=== PATIENT | female | born 1945 | race Caucasian/White ===

== ENCOUNTER 2017-01-02 11:18 | Outpatient (CLI) | payer OTHER ==
--- NOTE | 2017-01-02 12:19 | DIAGNOSTIC IMAGING REPORT ---
PROCEDURE: XR SACRUM AND COCCYX INDICATION: R/O OSTEOMYELITIS CHRONIC NONHEALING PRESSURE WOUND TECHNIQUE: Three views. COMPARISON: None. FINDINGS: Osseous structures are normal. No evidence of fracture. No evidence of osteolysis or cortical disruption. IMPRESSION: 1. Normal sacrum and coccyx.
== END 2017-01-02 23:00 ==
LOC: XR SRH 11:18
DX: L89.153 Pressure ulcer of sacral region, stage 3 (principal)